=== PATIENT | female | born 1975 | race Two or more races ===

== ENCOUNTER 2020-12-29 12:33 | Emergency (ER) | payer SELFPAY ==
[~2020-12-29] VITALS: Ht 160 cm; Wt 55.0 kg
[2020-12-29 12:44] VITALS: BP 155/82
--- NOTE | 2020-12-29 13:54 | NUR ---
VENDOR MANAGEMENT SPECIALIST: PT TO ROOM FROM LOBBY VIA W/C
== END 2020-12-29 15:28 | disposition home or self-care (01) ==
LOC: ED 15:00
DX: S90.121A Contusion of right lesser toe(s) without damage to nail, initial encounter (principal); W22.8XXA Striking against or struck by other objects, initial encounter; Y93.89 Activity, other specified; Y92.009 Unspecified place in unspecified non-institutional (private) residence as the place of occurrence of the external cause; Y99.8 Other external cause status
CPT/HCPCS: 99283